=== PATIENT | female | born 1950 | race Hispanic/Latino ===

== ENCOUNTER 2018-03-29 05:29 | Emergency (ER) | payer MEDICARE ==
[2018-03-29 05:30] VITALS: BMI 20.7
== END 2018-03-29 05:45 | disposition left against medical advice (07) ==
LOC: ED 05:29
DX: Z02.89 Encounter for other administrative examinations (principal); T14.90XA Injury, unspecified, initial encounter

== ENCOUNTER 2018-04-04 05:49 | Emergency (ER) | payer MEDICARE ==
[2018-04-04 05:50] VITALS: BMI 20.7
[2018-04-04 06:15] VITALS: RESP 17
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
[2018-04-04 06:32] LABS: BASO # 0.01 K/mm3 (0.0-2.0); BASO % 0.1 % (0.0-3.0); EOS # 0.1 (0.0-0.7); GRAN # 5.54 (1.4-6.5); GRAN % 68.2 % (50.0-68.0); HEMOGLOBIN 13.8 g/dL (12.0-16.0); LYMPH # 2.1 (1.2-3.4); MEAN CELL VOLUME 89.2 fl (80.0-105.0); MEAN CORPUSCULAR HEMOGLOBIN 29.7 pg (25.0-35.0); MEAN CORPUSCULAR HGB CONC 33.3 g/dl (31.0-37.0); MEAN PLATELET VOLUME 9.6 fl (7.0-11.0); MONO # 0.4 (0.1-0.6); MONO % 4.7 % (1.0-6.0); RBC 4.65 10^6/uL (3.5-6.1); RED CELL DISTRIBUTION WIDTH 13.2 % (11.5-14.5); WHITE BLOOD COUNT 8.1 10^3/ul (4.5-11.0)
[2018-04-04 06:34] LABS: ALB/GLOB RATIO 1.5 (1.1-1.8); ALBUMIN 4.2 g/dL (3.0-4.8); ALT/SGPT 22 U/L (7-56); AST/SGOT 22 U/L (14-36); BLOOD UREA NITROGEN 15 mg/dL (7-21); GFR AFRICAN-AMERICAN > 60; GFR NON-AFRICAN AMERICAN > 60
[2018-04-04 06:46] LABS: TROPONIN I < 0.01 ng/mL
[2018-04-04 07:07] VITALS: BP 117/62; PULSE 84; TEMP 98; O2SAT 98
--- NOTE | 2018-04-04 09:19 | RAD ---
HISTORY: chest pain COMPARISON: No prior. FINDINGS: LUNGS: No active pulmonary disease. PLEURA: No significant pleural effusion identified, no pneumothorax apparent. CARDIOVASCULAR: No radiographic findings to suggest acute or significant cardiovascular disease. Incidental Finding(s): Postoperative changes related to sternotomy. Valve prosthesis identified OSSEOUS STRUCTURES: No significant abnormalities. VISUALIZED UPPER ABDOMEN: Normal. OTHER FINDINGS: None. IMPRESSION: No active disease.
--- NOTE | 2018-04-04 22:45 | CARD ---
APPROVED REPORT EKG Measurement Heart [id number] <Conclusion> Ectopic atrial rhythm with premature atrial complexes with aberrant conduction Incomplete right bundle branch block Prolonged QT Abnormal ECG
== END 2018-04-04 07:07 | disposition home or self-care (01) ==
LOC: ED 05:49
DX: R07.9 Chest pain, unspecified (principal); F41.9 Anxiety disorder, unspecified

== ENCOUNTER 2018-04-10 06:48 | Inpatient (IN) | payer MEDICARE, OTHER ==
[2018-04-10 06:49] VITALS: BMI 20.7
[2018-04-10 07:35] VITALS: O2SAT 98
[2018-04-10] MEDS ORDERED: Sodium Chloride 0.9% 1,000 ML IV STA (07:40)
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
--- NOTE | 2018-04-10 08:40 | RAD ---
HISTORY: psych COMPARISON: 04/04/2018 FINDINGS: LUNGS: No active pulmonary disease. PLEURA: No significant pleural effusion identified, no pneumothorax apparent. CARDIOVASCULAR: Normal heart size. Mitral valve replacement. Sternotomy wires. No congestive change. OSSEOUS STRUCTURES: No significant abnormalities. VISUALIZED UPPER ABDOMEN: Normal. OTHER FINDINGS: None. IMPRESSION: No active disease.
[2018-04-10 09:21] LABS: BASO # 0.01 K/mm3 (0.0-2.0); BASO % 0.1 % (0.0-3.0); EOS # 0.1 (0.0-0.7); EOS % 1.5 % (1.5-5.0); GRAN # 4.84 (1.4-6.5); GRAN % 64.2 % (50.0-68.0); HEMOGLOBIN 12.1 g/dL (12.0-16.0); LYMPH # 2.2 (1.2-3.4); LYMPH % 28.5 % (22.0-35.0); MEAN CELL VOLUME 88.5 fl (80.0-105.0); MEAN CORPUSCULAR HEMOGLOBIN 28.9 pg (25.0-35.0); MEAN CORPUSCULAR HGB CONC 32.7 g/dl (31.0-37.0); MEAN PLATELET VOLUME 9.3 fl (7.0-11.0); MONO # 0.4 (0.1-0.6); MONO % 5.7 % (1.0-6.0); RBC 4.18 10^6/uL (3.5-6.1); RED CELL DISTRIBUTION WIDTH 13.2 % (11.5-14.5); WHITE BLOOD COUNT 7.5 10^3/ul (4.5-11.0)
[2018-04-10 09:30] LABS: INR 0.98 (0.93-1.08); PARTIAL THROMBOPLASTIN TIME 29.3 Seconds (25.1-36.5); PROTHROMBIN TIME 11.3 SECONDS (9.4-12.5)
[2018-04-10 09:34] LABS: ACETAMINOPHEN < 10.0 ug/ml (10.0-20.0); SALICYLATE < 1 mg/dL (2.0-20.0)
--- NOTE | 2018-04-10 09:36 | CARD ---
APPROVED REPORT EKG Measurement Heart [id number] <Conclusion> RSR with APCs RVCD NSSTW changes Low voltage Prolonged QTc
[2018-04-10 09:46] LABS: TROPONIN I < 0.01 ng/mL
[2018-04-10 10:00] LABS: ALB/GLOB RATIO 1.3 (1.1-1.8); ALBUMIN 3.3 g/dL (3.0-4.8); ALT/SGPT 24 U/L (7-56); AST/SGOT 23 U/L (14-36); BLOOD UREA NITROGEN 18 mg/dL (7-21); CALCIUM 8.4 mg/dL (8.4-10.5); GFR AFRICAN-AMERICAN > 60; GFR NON-AFRICAN AMERICAN > 60
[2018-04-10 10:28] LABS: URINE BILIRUBIN NEGATIVE (NEGATIVE); URINE BLOOD NEGATIVE (NEGATIVE); URINE GLUCOSE (UA) NEGATIVE (NEGATIVE); URINE LEUKOCYTE ESTERASE NEGATIVE Leu/uL (NEGATIVE); URINE PROTEIN NEGATIVE mg/dL (<30 mg/dL); URINE UROBILINOGEN 0.2 E.U./dL (<1 E.U./dL)
[2018-04-10 10:32] LABS: URINE APPEARANCE CLEAR (CLEAR); URINE COLOR LIGHT YELLOW (YELLOW)
[2018-04-10 11:08] LABS: BARBITURATES, UR NEGATIVE (NEGATIVE); BENZODIAZEPINES, UR NEGATIVE (NEGATIVE); OPIATES, UR NEGATIVE (NEGATIVE); PHENCYCLIDINE, UR NEGATIVE (NEGATIVE)
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
--- NOTE | 2018-04-10 13:43 | PCM.BM ---
<Zeke Saunders - Last Filed: 04/10/18 13:40> Treatment Plan Problems - Problems identified on initial assessmt Altered sleep pattern Date Initiated: 04/10/18 Time Initiated: 13:41 Assessment reference: HP, NA Status: Active HOPLESSNESS/HELPLESSNESS Date Initiated: 04/10/18 Time Initiated: 13:43 Assessment reference: HP, NA Status: Active MEDICATION NONCOMPLIANCE Date Initiated: 04/10/18 Time Initiated: 13:43 Assessment reference: HP, NA Status: Active Treatment assets and liabiliti Patient Assests: cooperative, self-reliant, ADL independent, negotiates basic needs, cognitively intact Patient Liabilities: live alone, financial problems, poor support system, other - Milieu Protocol Maintain good personal hygiene: daily Encourage regular showers, daily Remind patient to perform daily oral care, daily Assist patient to perform ADL's Maintain personal safety: daily Educate patient to report safety concerns to staff, daily Monitor environment for contraband/sharps Medication safety: Monitor for expected outcome, potential side effects: daily, Assess barriers to learning: daily, Assess readiness for medication education: daily Discharge/Continuing Care - Education Needs Education Needs: Patient Medication, Patient Diagnosis/Disease Process, Patient Coping Skills, Patient Anger Management skills, Patient Community resources, Patient Activities of Daily Living, Patient Health Practices/Safety, Patient Personal Hygiene/Grooming, Patient Aftercare Safety Plan - Discharge Discharge Criteria: Free of Suicidal thoughts, Free of Homicidal thoughts, Free of paranoid thoughts, Normal sleep pattern, Ability to care for self Discharge to:: Home <Minerva Crawley - Last Filed: 04/10/18 14:10> - Diagnosis (1) Psychosis Status: Acute Interventions: 04/10/18 14:09 Psychoeducation/psychotherapy Psychopharmacology/adjustment of medications as needed/ monitoring possible side effects Evaluate pt on daily basis Compliance with medications and follow up appointments Long acting medication if pt is noncompliant with pill form Suicide and homicide risk assessment and prevention, coping strategies, safety plan Relapse prevention Reduction of symptoms Improve functional status Possible assertive community treatment Cognitive behavioral therapy Family involvement Possible social skill training as outpatient
[2018-04-10] MEDS ORDERED: Magnesium Hydroxide Susp 30 ml UD PO PRN (15:07)
[2018-04-10] MEDS ORDERED: Alum-Mag Hydrox-Simethicone Susp (30 mL) PO PRN (15:07)
[2018-04-10 15:57] VITALS: RESP 20
--- NOTE | 2018-04-11 06:08 | CON ---
DATE: 04/10/2018 REASON FOR THE CONSULTATION: Cardiac evaluation, history of open heart surgery. I went to see the patient. It was mentioned by the nursing staff the patient did not sleep for 3 days and medications were given to sleep, and she does not want to be awake. No cardiac complaint at this time, evaluation and followup. So we will consult the patient and see the patient in detail on Friday. Janes Wood MD
[2018-04-11] MEDS: Multivitamin With Minerals Tab PO SCH (09:03)
[2018-04-11 09:12] LABS: HDL CHOLESTEROL 63 mg/dL (29-60)
--- NOTE | 2018-04-11 09:12 | PCM.PYCHPN ---
Psychiatric Progress Note - Psychiatric Progress Note Patient seen today, length of contact: 25 min Problems Identified/Issues Discussed: I reviewed assessment and recent notes. Patient has been labile, restless and demanding on the unit. She interrupted me multiple times during round to ask if I planned to see her. Patient is demanding discharge indicating that she only came to the hospital so she could get some sleep. Explains that she didnt know she would end up in a psychiatric unit. We discuss her symptoms as she signs a 48 hour notice at 7:07 am. Patient is oriented to month, year and location. She is superficial, disengaged and minimizing. Her priority is to be discharged. 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 Patient reports she she slept well last night (5-6 hours) after she was medicated in the unit. Her thoughts are flighty and speech is rushed but not extremely pressured. Patient denies any new discomfort or pain. She doesn't appear to be in any physical distress. She denied hallucinations or paranoia. Staff notes indicate that she has been grandiose, illogical and paranoid. Her impulse control is tenuous and she requires further observation. Diagnostic Results: Psychotic disorder NOS r/o schizophrenia, late-onset r/o delirum r/o dementia r/o paranoid personality disorder Mental Status Examination - Cognitive Function Orientation: Person, Place - Mood Mood: Depressed ("I feel like I am in zoo, I am angry") - Affect Affect: Broad (expanded, irritable, angry) - Formal Thought Process Formal Thought Process: Delusions, Paranoia, Loosening of associations, Flight of ideas, Circumstantial, Perservation - Homicidal Ideation Homicidal Ideation: No Goal/Treatment Plan - Goal/Treatment Plan Progress Toward Problem(s) and Goals/Treatment Plan: * c/w current tx and plan * Patient placed 48 hour letter at 7:07 am on 04/11/18. Will request for screening from [facility] at this time. Patient is unknown to me and based on her presentation this morning and recent staff notes, she remains unpredictable. * No new weekend lab results thus far * Vitals reviewed and noted below: Selected Entries 04/11/18 07:24 Temperature 98.1 F Pulse Rate 63 Respiratory 20 Rate Blood Pressure 113/75
[2018-04-11 09:23] LABS: LDL CHOLESTEROL 87 mg/dL (0-129)
--- NOTE | 2018-04-11 13:08 | CP.PCM.CON ---
<DickLizandro - Last Filed: 04/11/18 14:53> History of Present Illness - History of Present Illness History of Present Illness: Medicine Consult Note Lizandro Jennings PGY-2 67 year old female with past medical history of diverticulitis, atrial fibrillation, open heart surgery (at 37 yo, 2 valve repairs) who was admitted to psychiatry unit. Medicine is being consulted for an episode nausea. Patient states her nausea has now resolved, states her last bowel movement was yesterday which was looser than usual. Patient denies any vomiting or abdominal pain. Patient denies chest pain, SOB, fever, chills, or any other complaints at this time. PMH: diverticulitis, atrial fibrillation, open heart surgery (at 37 yo, 2 valve repairs) PSH: cardiac valve repair Allergies: Sulfa Family Medical History: parents , father of throat cancer Medications: Per MAR Social: denies alcohol, tobacco, or illicit drug use Review of Systems - Constitutional Constitutional: absent: Anorexia, Chills, Fatigue, Fever, Headache, Lethargy, Night Sweats - EENT Eyes: absent: Blurred Vision, Change in Vision Ears: absent: Decreased Hearing, Disequilibrium, Dizziness - Cardiovascular Cardiovascular: absent: Chest Pain, Diaphoresis, Dyspnea, Syncope - Respiratory Respiratory: absent: Cough, Dyspnea, Wheezing - Gastrointestinal Gastrointestinal: Diarrhea. absent: Abdominal Pain, Coffee Ground Emesis, Constipation, Cramping, Dysphagia, Hematemesis, Hematochezia, Nausea, Vomiting - Genitourinary Genitourinary: absent: Difficulty Urinating, Dysuria, Flank Pain, Hematuria - Musculoskeletal Musculoskeletal: absent: Arthralgias, Back Pain - Integumentary Integumentary: absent: Rash, Sores - Neurological Neurological: absent: Abnormal Gait, Confusion, Disequilibrium, Dizziness, Numbness, Headaches, Tingling, Tremor, Vertigo, Weakness - Endocrine Endocrine: absent: Excessive Sweating, Fatigue, Flushing - Hematologic/Lymphatic Hematologic: absent: Easy Bleeding, Easy Bruising Past Patient History - Infectious Disease Hx of Infectious Diseases: None - Tetanus Immunizations Tetanus Immunization: Unknown - Past Social History Smoking Status: Never Smoked - CARDIAC Hx Cardiac Disorders: Yes Hx Hypertension: No - PULMONARY Hx Tuberculosis: No - NEUROLOGICAL HX Cerebrovascular Accident: No Hx Seizures: No - RENAL Hx Chronic Kidney Disease: No - ENDOCRINE/METABOLIC Hx Endocrine Disorders: No - HEMATOLOGICAL/ONCOLOGICAL Hx Cancer: No Hx Human Immunodeficiency Virus (HIV): No - GASTROINTESTINAL Hx Diverticulitis: Yes Hx Hemorrhoids: Yes - GENITOURINARY/GYNECOLOGICAL Hx Sexually Transmitted Disorders: No - PSYCHIATRIC Hx Depression: Yes Hx Substance Use: No - SURGICAL HISTORY Hx Surgeries: Yes Other/Comment: heart surgery - ANESTHESIA Hx Anesthesia: Yes Hx Anesthesia Reactions: No Meds Allergies/Adverse Reactions: Allergies Allergy/AdvReac Type Severity Reaction Status Date / Time sulfur dioxide Allergy FEVER Verified 04/10/18 12:28 - Medications Medications: Current Medications Acetaminophen (Tylenol 325mg Tab) 650 mg PO Q6H PRN PRN Reason: Pain, moderate (4-7) Al Hydrox/Mg Hydrox/Simethicone (Maalox Plus 30 Ml) 30 ml PO DAILY PRN PRN Reason: Indigestion / Heartburn Lorazepam (Ativan) 2 mg IM Q6 PRN; Protocol PRN Reason: agitaiton/aggression Lorazepam (Ativan) 2 mg PO Q6H PRN; Protocol PRN Reason: anxiety/agitation Last Admin: 04/11/18 09:55 Dose: 2 mg Magnesium Hydroxide (Milk Of Magnesia) 30 ml PO DAILY PRN PRN Reason: Constipation Multivitamins/Minerals (Therapeutic-M Tab) 1 tab PO DAILY EMERALD Last Admin: 04/11/18 09:03 Dose: 1 tab Quetiapine Fumarate (Seroquel) 25 mg PO AMHS EMERALD PRN Reason: Protocol Last Admin: 04/11/18 09:04 Dose: 25 mg Zaleplon (Sonata) 5 mg PO HS PRN PRN Reason: Insomnia Ziprasidone (Geodon Cap) 20 mg PO Q6H PRN; Protocol PRN Reason: psychosis/agitation Last Admin: 04/11/18 09:56 Dose: 20 mg Ziprasidone (Geodon Inj) 20 mg IM Q6H PRN; Protocol PRN Reason: severe agitaiton/psychosis Physical Exam - Constitutional Appears: Well, Non-toxic, No Acute Distress - Head Exam Head Exam: ATRAUMATIC, NORMAL INSPECTION, NORMOCEPHALIC - Eye Exam Eye Exam: EOMI, Normal appearance - ENT Exam ENT Exam: Mucous Membranes Moist - Neck Exam Neck exam: Positive for: Full Rom - Respiratory Exam Respiratory Exam: Clear to Auscultation Bilateral, NORMAL BREATHING PATTERN - Cardiovascular Exam Cardiovascular Exam: REGULAR RHYTHM, +S1, +S2 - GI/Abdominal Exam GI & Abdominal Exam: Soft, Tenderness. absent: Diminished Bowel Sounds, Distended, Guarding, Hyperactive Bowel Sounds, Rebound, Rigid Additional comments: mild LLQ which patient states is chronic - Extremities Exam Extremities exam: Positive for: pedal pulses present. Negative for: calf tenderness - Neurological Exam Neurological exam: Alert, CN II-XII Intact, Oriented x3 - Psychiatric Exam Psychiatric exam: Anxious - Skin Skin Exam: Warm Results - Vital Signs Recent Vital Signs: Last Vital Signs Temp 98.1 F 04/11/18 07:24 Pulse 63 04/11/18 07:24 Resp 20 04/11/18 07:24 BP 113/75 04/11/18 07:24 Pulse Ox 98 04/10/18 10:30 - Labs Result Diagrams: 04/10/18 08:52 04/10/18 08:52 Labs: Laboratory Results - last 24 hr 04/11/18 08:40 Triglycerides 63 Cholesterol 181 LDL Cholesterol Direct 87 HDL Cholesterol 63 H Assessment & Plan - Assessment and Plan (Free Text) Assessment: 67 year old female with past medical history of diverticulitis, atrial fibrillation, open heart surgery (at 37 yo, 2 valve repairs) who was admitted to psychiatry unit. Medicine is being consulted for an episode nausea and medical clearance. Plan: 1. History of Cardiac Surgery and afib -currently denies any cardiac complaints -cardio consulted, [place], follow recs -EKG was Sinus rhythm with QTC prolongation, premature atrial complexes and right ventricular conduction display 2. Nausea -patient denies any nausea currently -will continue to monitor 3. Diarrhea -last episode of diarrhea was more than 24 hours ago -will monitor for another BM -CBC, CMP to follow electrolytes 4. History of Psychiatric Disorders -management as per psychiatry <Vy Espinoza R - Last Filed: 04/11/18 17:57> Meds - Medications Medications: Current Medications Acetaminophen (Tylenol 325mg Tab) 650 mg PO Q6H PRN PRN Reason: Pain, moderate (4-7) Al Hydrox/Mg Hydrox/Simethicone (Maalox Plus 30 Ml) 30 ml PO DAILY PRN PRN Reason: Indigestion / Heartburn Lorazepam (Ativan) 2 mg IM Q6 PRN; Protocol PRN Reason: agitaiton/aggression Lorazepam (Ativan) 2 mg PO Q6H PRN; Protocol PRN Reason: anxiety/agitation Last Admin: 04/11/18 09:55 Dose: 2 mg Magnesium Hydroxide (Milk Of Magnesia) 30 ml PO DAILY PRN PRN Reason: Constipation Multivitamins/Minerals (Therapeutic-M Tab) 1 tab PO DAILY EMERALD Last Admin: 04/11/18 09:03 Dose: 1 tab Quetiapine Fumarate (Seroquel) 25 mg PO AMHS EMERALD PRN Reason: Protocol Last Admin: 04/11/18 09:04 Dose: 25 mg Zaleplon (Sonata) 5 mg PO HS PRN PRN Reason: Insomnia Ziprasidone (Geodon Cap) 20 mg PO Q6H PRN; Protocol PRN Reason: psychosis/agitation Last Admin: 04/11/18 09:56 Dose: 20 mg Ziprasidone (Geodon Inj) 20 mg IM Q6H PRN; Protocol PRN Reason: severe agitaiton/psychosis Results - Vital Signs Recent Vital Signs: Last Vital Signs Temp 98.1 F 04/11/18 07:24 Pulse 75 04/11/18 16:00 Resp 20 04/11/18 07:24 BP 138/85 04/11/18 16:00 Pulse Ox 98 04/10/18 10:30 - Labs Result Diagrams: 04/10/18 08:52 04/10/18 08:52 Labs: Laboratory Results - last 24 hr 04/11/18 08:40 Triglycerides 63 Cholesterol 181 LDL Cholesterol Direct 87 HDL Cholesterol 63 H Attending/Attestation - Attestation I have personally seen and examined this patient.: Yes I have fully participated in the care of the patient.: Yes I have reviewed all pertinent clinical information: Yes Notes (Text): Patient seen and examined by me at 1:00PM with resident at bedside. Case including physical assessment and plan discussed with resident. Agree with above with following additions/changes. Patient is a 67-year-old female with past medical history significant for diverticulitis, atrial fibrillation, open-heart surgery for valve repair, and psychiatric disorder that presented with wanting to sleep. We are consulted for episode of nausea with a history of diverticulitis. Patient states that she felt nauseous yesterday secondary to the heat. She denies any current nausea. There was no associated vomiting. Patient denies any abdominal pain. She states that she tends to feel nauseous whenever it is very hot. She states that she also had 1-2 episodes of slightly watery diarrhea yesterday. That has since resolved. He has not had a bowel movement since then. Patient is denying any chest pain or shortness of breath. Patient states that she does not want to take any more pills as they are making her very sleepy. No headaches or dizziness. No fevers or chills. No dysuria. No neck pain or back pain. 14 point review of systems reviewed by me. Please see HPI. All other systems are negative. Home medications reviewed with patient by me. Physical exam: Gen: Patient is awake and alert and lying in bed in no acute distress HEENT: Normocephalic atraumatic, extraocular muscles intact, pupils equal reactive, oropharynx is pink and moist, no pharyngeal erythema or exudate appreciated, neck is supple. Hearing grossly intact. Ears and nose externally unremarkable. Cardiovascular: Normal rhythm, normal S1-S2, no murmurs rubs or gallops appreciated Pulmonary: Normal respiratory effort. No rhonchi, rales, or wheezing appreciated Gastrointestinal: Soft, obese abdomen, nontender, nondistended, positive bowel sounds all 4 quadrants, no guarding Musculoskeletal: Moves all extremities, no calf tenderness, no CVA tenderness Central nervous system: AAO 3 Dermatologic: Skin warm and dry Assessment and plan: Patient is a 67-year-old female for whom your consult at for for nausea. 1. Nausea. Resolved. We'll continue to monitor for now. There is no associated vomiting or abdominal pain. 2. Diarrhea. Patient does have a history of diverticulitis. Diarrhea seems to have resolved. Patient is not having any abdominal pain. We'll monitor for now. 3. History of valve repair(per patient) and atrial fibrillation. Cardiology is following. Care as per cardiac team 4. Psychiatric disorder. Care as per primary team Case was discussed in detail with the patient and medical lab technologist regarding current diagnosis and treatment plan. Thank you for allowing us to participate in the care of your patient. We will follow with you.
[2018-04-12] MEDS ORDERED: Pantoprazole 40 mg EC Tab PO SCH (06:00)
[2018-04-12] MEDS: Multivitamin With Minerals Tab PO SCH (08:43)
--- NOTE | 2018-04-12 09:00 | PCM.PYCHPN ---
Psychiatric Progress Note - Psychiatric Progress Note Patient seen today, length of contact: 25 min Problems Identified/Issues Discussed: I reviewed recent notes. Patient continues to be labile, grandiose and irritable in the unit. She retracted her 48 hour letter but for some reason she believes that she will be discharged tomorrow (this was not indicated by any of the staff members or this provider). Grooming is fair and speech is rushed. Thought process is scattered and patient goes on multiple tangents as she complains about her housing, neighbors, politicians and [place] in general. She repeatedly reports that she is planning to write an article that will "destroy [employer]". Patient is difficult to redirect or reassure (but not impossible). Patient didn't sleep well last night. Complains that the unit was too noisy for her. She denies any new discomfort or pain. Patient continues to deny hallucinations or paranoia. Staff notes indicate that she has been grandiose, illogical and paranoid. Her impulse control is tenuous and she requires further observation. Diagnostic Results: Psychotic disorder NOS r/o schizophrenia, late-onset r/o delirum r/o dementia r/o paranoid personality disorder Mental Status Examination - Cognitive Function Orientation: Person, Place Attention: Poor Concentration: Poor Association: Loose - Mood Mood: Depressed ("I feel like I am in zoo, I am angry") - Affect Affect: Broad (expanded, irritable, angry) - Formal Thought Process Formal Thought Process: Delusions, Paranoia, Loosening of associations, Flight of ideas, Circumstantial, Perservation - Suicidal Ideation Suicidal Ideation: No - Homicidal Ideation Homicidal Ideation: No Goal/Treatment Plan - Goal/Treatment Plan Progress Toward Problem(s) and Goals/Treatment Plan: * c/w current tx and plan * Appreciate f/u by Dr. Jennings/Dr. Espinoza on 04/11/18 * Patient placed 48 hour letter at 7:07 am on 04/11/18 and then retracted it after discussion with [facility] screener. * New weekend lab results noted below: 04/11/18 04/11/18 08:40 08:40 Triglycerides 63 Cholesterol 181 LDL Cholesterol Direct 87 HDL Cholesterol 63 H RPR Nonreactive * Vitals reviewed and noted below: 04/12/18 06:54 Temperature 98.1 F Pulse Rate 70 Respiratory 20 Rate Blood Pressure 128/81
--- NOTE | 2018-04-12 12:58 | CP.PCM.PN ---
<Ambar Gonzalez - Last Filed: 04/12/18 16:34> Subjective - Date & Time of Evaluation Date of Evaluation: 04/12/18 Time of Evaluation: 08:30 - Subjective Subjective: Ambar Gonzalez DO, PGY-2: Progress Note for Dr. Vy Espinoza Patient seen and examined at bedside. Patient reports no nausea, vomiting, diarrhea, abdominal pain, chest discomfort, or palpitations. Patient reports that she slept poorly overnight, but is tolerating a normal diet without nausea or vomiting. Chart review indicates no adverse events overnight. Objective - Vital Signs/Intake and Output Vital Signs (last 24 hours): Temp Pulse Resp BP Pulse Ox 98.1 F 70 20 128/81 98 04/12/18 06:54 04/12/18 06:54 04/12/18 06:54 04/12/18 06:54 04/10/18 10:30 - Medications Medications: Current Medications Acetaminophen (Tylenol 325mg Tab) 650 mg PO Q6H PRN PRN Reason: Pain, moderate (4-7) Al Hydrox/Mg Hydrox/Simethicone (Maalox Plus 30 Ml) 30 ml PO DAILY PRN PRN Reason: Indigestion / Heartburn Lorazepam (Ativan) 2 mg IM Q6 PRN; Protocol PRN Reason: agitaiton/aggression Lorazepam (Ativan) 2 mg PO Q6H PRN; Protocol PRN Reason: anxiety/agitation Last Admin: 04/11/18 09:55 Dose: 2 mg Magnesium Hydroxide (Milk Of Magnesia) 30 ml PO DAILY PRN PRN Reason: Constipation Multivitamins/Minerals (Therapeutic-M Tab) 1 tab PO DAILY EMERALD Last Admin: 04/12/18 08:43 Dose: 1 tab Quetiapine Fumarate (Seroquel) 25 mg PO AMHS EMERALD PRN Reason: Protocol Last Admin: 04/11/18 23:53 Dose: 25 mg Zaleplon (Sonata) 5 mg PO HS PRN PRN Reason: Insomnia Ziprasidone (Geodon Cap) 20 mg PO Q6H PRN; Protocol PRN Reason: psychosis/agitation Last Admin: 04/11/18 09:56 Dose: 20 mg Ziprasidone (Geodon Inj) 20 mg IM Q6H PRN; Protocol PRN Reason: severe agitaiton/psychosis - Labs Labs: PT 11.3 SECONDS (9.4-12.5) 04/10/18 08:52 INR 0.98 (0.93-1.08) 04/10/18 08:52 APTT 29.3 Seconds (25.1-36.5) 04/10/18 08:52 - Constitutional Appears: Well, Non-toxic - Head Exam Head Exam: ATRAUMATIC, NORMOCEPHALIC - Eye Exam Eye Exam: EOMI, Normal appearance - ENT Exam ENT Exam: Mucous Membranes Moist - Neck Exam Neck Exam: Normal Inspection - Respiratory Exam Respiratory Exam: Clear to Ausculation Bilateral, NORMAL BREATHING PATTERN. absent: Accessory Muscle Use - Cardiovascular Exam Cardiovascular Exam: RRR, +S1, +S2 - GI/Abdominal Exam GI & Abdominal Exam: Soft, Normal Bowel Sounds. absent: Guarding - Rectal Exam Rectal Exam: NORMAL INSPECTION - Extremities Exam Extremities Exam: Normal Inspection. absent: Calf Tenderness, Normal Capillary Refill - Back Exam Back Exam: NORMAL INSPECTION. absent: CVA tenderness (L), CVA tenderness (R) - Neurological Exam Neurological Exam: Alert, Awake, Oriented x3 - Psychiatric Exam Psychiatric exam: Normal Affect, Normal Mood - Skin Skin Exam: Dry, Intact, Normal Color, Warm Assessment and Plan - Assessment and Plan (Free Text) Assessment: 67 year old female with past medical history of diverticulitis, atrial fibrillation, open heart surgery (at 37 yo, 2 valve repairs) who was admitted to psychiatry unit. Medicine is being consulted for an episode nausea and medical clearance. Plan: 1. History of Cardiac Surgery and afib -currently denies any cardiac complaints -cardio consulted, [place], who plans on seeing the patient tomorrow -EKG was Sinus rhythm with QTC prolongation, premature atrial complexes and right ventricular conduction display - Lipid panel shows Total cholesterol 63, Triglycerides 181, LDL 87, and HDL of 63 2. Nausea, resolved -patient denies any nausea currently -will continue to monitor 3. Diarrhea, reoslved -last episode of diarrhea was more than 36 hours ago -will monitor for another BM 4. History of Psychiatric Disorders -management as per psychiatry As always, thank you for allowing us to participate in the care of this patient Patient is medically cleared. Please re-consult as needed Case reviewed and discussed with attending physician, Dr. Vy Espinoza <Vy Espinoza R - Last Filed: 04/12/18 17:13> Objective - Vital Signs/Intake and Output Vital Signs (last 24 hours): Temp Pulse Resp BP Pulse Ox 98.1 F 75 20 113/76 98 04/12/18 06:54 04/12/18 16:00 04/12/18 06:54 04/12/18 16:00 04/10/18 10:30 - Medications Medications: Current Medications Acetaminophen (Tylenol 325mg Tab) 650 mg PO Q6H PRN PRN Reason: Pain, moderate (4-7) Al Hydrox/Mg Hydrox/Simethicone (Maalox Plus 30 Ml) 30 ml PO DAILY PRN PRN Reason: Indigestion / Heartburn Lorazepam (Ativan) 2 mg IM Q6 PRN; Protocol PRN Reason: agitaiton/aggression Lorazepam (Ativan) 2 mg PO Q6H PRN; Protocol PRN Reason: anxiety/agitation Last Admin: 04/11/18 09:55 Dose: 2 mg Magnesium Hydroxide (Milk Of Magnesia) 30 ml PO DAILY PRN PRN Reason: Constipation Multivitamins/Minerals (Therapeutic-M Tab) 1 tab PO DAILY EMERALD Last Admin: 04/12/18 08:43 Dose: 1 tab Quetiapine Fumarate (Seroquel) 25 mg PO AMHS EMERALD PRN Reason: Protocol Last Admin: 04/12/18 10:30 Dose: 25 mg Zaleplon (Sonata) 5 mg PO HS PRN PRN Reason: Insomnia Ziprasidone (Geodon Cap) 20 mg PO Q6H PRN; Protocol PRN Reason: psychosis/agitation Last Admin: 04/11/18 09:56 Dose: 20 mg Ziprasidone (Geodon Inj) 20 mg IM Q6H PRN; Protocol PRN Reason: severe agitaiton/psychosis - Labs Labs: PT 11.3 SECONDS (9.4-12.5) 04/10/18 08:52 INR 0.98 (0.93-1.08) 04/10/18 08:52 APTT 29.3 Seconds (25.1-36.5) 04/10/18 08:52 Attending/Attestation - Attestation I have personally seen and examined this patient.: Yes I have fully participated in the care of the patient.: Yes I have reviewed all pertinent clinical information, including history, physical exam and plan: Yes Notes (Text): Patient seen and examined by me at 11:25AM with resident at bedside. Case including physical assessment and plan discussed with resident. Agree with above with following additions/changes. Patient is a 67-year-old female with past medical history significant for diverticulitis, atrial fibrillation, open-heart surgery for valve repair, and psychiatric disorder that presented with wanting to sleep. We are consulted for episode of nausea with a history of diverticulitis. Patient states nausea has resolved. No vomiting. No abdominal pain. Patient states she is no longer having diarrhea. She states she feels tired because she was unable to sleep overnight. Patient is denying any chest pain or shortness of breath. No headaches or dizziness. No fevers or chills. No dysuria. No neck pain or back pain. Physical exam: Gen: Patient is awake and alert and lying in bed in no acute distress HEENT: Normocephalic atraumatic, extraocular muscles intact, pupils equal reactive, oropharynx is pink and moist, no pharyngeal erythema or exudate appreciated, neck is supple. Cardiovascular: Normal rhythm, normal S1-S2, no murmurs rubs or gallops appreciated Pulmonary: Normal respiratory effort. No rhonchi, rales, or wheezing appreciated Gastrointestinal: Soft, obese abdomen, nontender, nondistended, positive bowel sounds all 4 quadrants, no guarding Musculoskeletal: Moves all extremities, no calf tenderness, no CVA tenderness Central nervous system: AAO 3 Dermatologic: Skin warm and dry Assessment and plan: Patient is a 67-year-old female with nausea and diarrhea. 1. Nausea. Resolved. There is no associated vomiting or abdominal pain. 2. Diarrhea. Patient does have a history of diverticulitis. Diarrhea resolved. 3. History of valve repair(per patient) and atrial fibrillation. Cardiology is following. Care as per cardiac team 4. Psychiatric disorder. Care as per primary team Case was discussed in detail with the patient regarding current diagnosis and treatment plan. Nausea and diarrhea resolved. We will sign off. Please re-consult if needed. Thank you for allowing us to participate in the care of your patient.
[2018-04-13] MEDS: Multivitamin With Minerals Tab PO SCH (09:24)
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
[2018-04-14] MEDS: Multivitamin With Minerals Tab PO SCH (10:38)
--- NOTE | 2018-04-14 12:35 | PN ---
DATE: 04/14/2018 REASON FOR CONSULTATION AND FOLLOWUP: Cardiac evaluation, history of open heart surgery. SUBJECTIVE: The patient denies any chest pain, shortness of breath or any palpitations, but very upset, did not sleep last night. OBJECTIVE: GENERAL: Not in apparent distress, but appears very upset and saying bad words to staff that she could not sleep last night. VITAL SIGNS: Temperature afebrile, heart rate 69, blood pressure 110/60. HEENT: PERRLA. Extraocular muscles are intact. NECK: Supple. No carotid bruits. No thyromegaly. CHEST: Clear to auscultation. HEART: S1 and S2 regular. ABDOMEN: Soft. EXTREMITIES: Clubbing and cyanosis negative. LABORATORY DATA: Blood workup as follows: WBC 7.9, hemoglobin 12.1, hematocrit 37, platelet count 212. Chemistries shows sodium 141, potassium 3.9, chloride 109, carbon dioxide 22, anion gap 14, BUN 18, creatinine 0.7. Total cholesterol 181, LDL 87, HDL 63, triglycerides 63. IMPRESSION: A 67-year-old female with past medical history significant for patent foramen ovale, status post repair at the age of 32, history of mitral valve regurgitation and tricuspid regurgitation, status post mitral valve repair and tricuspid repair at the age of 32 [address] [facility]. History of paroxysmal atrial fibrillation, was on Coumadin, but stopped two months after the surgery. Very poor compliant with the medication and now in psychiatric floor for anxiety disorder. RECOMMENDATIONS: Echo to assess LV function. EKG shows normal sinus with APCs. We will get repeat EKG and echo to assess LV function. Further recommendations after the echo. We will follow with you. Patient states she is very upset because she could not sleep, but she states that she will go for echo today. We will get TSH level and hemoglobin A1c as well on next blood draw. Thank you Dr. Crawley for providing us the opportunity in taking care of Alissa He. Janes Wood MD
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
--- NOTE | 2018-04-14 16:36 | CARD ---
APPROVED REPORT Date of service: 04/14/2018 EKG Measurement Heart [id number] <Conclusion> Atrial flutter with variable AV block with premature ventricular or aberrantly conducted complexes Incomplete right bundle branch block Possible Anterior infarct, age undetermined Abnormal ECG
[2018-04-15 07:26] LABS: BASO # 0.01 K/mm3 (0.0-2.0); BASO % 0.2 % (0.0-3.0); EOS # 0.1 (0.0-0.7); EOS % 1.9 % (1.5-5.0); GRAN # 3.14 (1.4-6.5); GRAN % 52.9 % (50.0-68.0); LYMPH # 2.4 (1.2-3.4); LYMPH % 39.9 % (22.0-35.0); MEAN CELL VOLUME 87.9 fl (80.0-105.0); MEAN CORPUSCULAR HEMOGLOBIN 29.6 pg (25.0-35.0); MEAN CORPUSCULAR HGB CONC 33.6 g/dl (31.0-37.0); MEAN PLATELET VOLUME 9.6 fl (7.0-11.0); MONO # 0.3 (0.1-0.6); MONO % 5.1 % (1.0-6.0); RBC 5.14 10^6/uL (3.5-6.1); WHITE BLOOD COUNT 5.9 10^3/ul (4.5-11.0)
[2018-04-15 07:29] LABS: HEMOGLOBIN 15.2 g/dL (12.0-16.0)
[2018-04-15 07:53] LABS: ALB/GLOB RATIO 1.4 (1.1-1.8); ALBUMIN 3.8 g/dL (3.0-4.8); ALT/SGPT 21 U/L (7-56); AST/SGOT 18 U/L (14-36); BLOOD UREA NITROGEN 17 mg/dL (7-21); CALCIUM 9.1 mg/dL (8.4-10.5); GFR AFRICAN-AMERICAN > 60; GFR NON-AFRICAN AMERICAN > 60; HDL CHOLESTEROL 58 mg/dL (29-60)
[2018-04-15 07:54] LABS: LDL CHOLESTEROL 91 mg/dL (0-129)
[2018-04-15] MEDS: Multivitamin With Minerals Tab PO SCH (08:26)
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
--- NOTE | 2018-04-15 13:38 | PN ---
DATE: 04/15/2018 LOCATION: Patient is in room 518, bed 1. REASON FOR CONSULTATION AND FOLLOWUP: Cardiac evaluation; history of patent foramen ovale, for which patient had surgery. Patient also has repair of mitral valve and tricuspid valve for their regurgitation. SUBJECTIVE: Patient denies any chest pain, shortness of breath, or palpitation. PHYSICAL EXAMINATION: VITAL SIGNS: Blood pressure 103/76, respirations 20, pulse 93, and temperature 98.2. HEENT: Head is normocephalic. Eyes: Pupils normal. Conjunctivae normal. Nose and throat normal. NECK: JVP low. Carotids equal. THORAX: AP diameter normal. LUNGS: Clear. CARDIOVASCULAR: S1 and S2. ABDOMEN: Soft. No tenderness. No organomegaly. Bowel sounds normal. EXTREMITIES: No clubbing. No cyanosis. LABORATORY DATA: WBC 5.9, hemoglobin 15.2, hematocrit 45.2, and platelets 246. Sodium 141, potassium 4.1. BUN 17, creatinine 0.7. Calcium 9.1, phosphorus 3.7, magnesium 2.4. AST and ALT normal. Total protein 6.6, albumin 3.8. DIAGNOSES: History of patent foramen ovale, status post surgery for closure of the patent foramen ovale and repair of mitral valve and repair of tricuspid valve for mitral and tricuspid regurgitation at age 32 at [facility]. Patient is very poorly compliant with the medication and now patient is admitted to psychiatric floor because of anxiety. PLAN: This patient had echocardiogram done yesterday. Report is pending. We will continue present therapy and review the echo and if there will be any need for any further management from cardiac point of view, I will review the echo and will let you know. In the meantime, patient's cardiac status is stable and if patient wants to go home, patient can go home and follow the echo as outpatient. We will follow with you. Janes Turner MD
--- NOTE | 2018-04-15 18:00 | CARD ---
APPROVED REPORT Date of service: 04/14/2018 EXAM: Two-dimensional and M-mode echocardiogram with Doppler and color Doppler. INDICATION S/P ASD, MVR, TR, MR, RVSP 2D DIMENSIONS Left Atrium (2D)4.6 (1.6-4.0cm)IVSd0.9 (0.7-1.1cm) LVDd4.1 (3.9-5.9cm)PWd1.0 (0.7-1.1cm) LVDs2.9 (2.5-4.0cm)FS (%) 28.9 % LVEF (%)56.1 (>50%) M-Mode DIMENSIONS Aortic Root3.20 (2.2-3.7cm)Aortic Cusp Exc.1.80 (1.5-2.0cm) Aortic Valve AoV Peak Dcwkvamo220.0cm/Sinan Peak GR.6mmHg Mitral Valve MV [id number]/A ratio0.0MVA (PHT)3.44cm2 TDI E/Lateral E'0.0E/Medial E'0.0 Pulmonary Valve PV Peak Ctvvsiam04.1cm/sPV Peak Grad.2mmHg Tricuspid Valve TR Peak Sfaknems367ap/sRAP [id number] Peak Gr.21mmHg [id number] LEFT VENTRICLE The left ventricle is normal size. There is normal left ventricular wall thickness. The left ventricular function is normal.EF-60-65% There is normal LV segmental wall motion. The left ventricular diastolic function is normal. No left ventricle thrombus noted on this study. There is no ventricular septal defect visualized. There is no left ventricular aneurysm. There is no mass noted in the left ventricle. RIGHT VENTRICLE The right ventricle is mildly dilated. There is normal right ventricular wall thickness. The right ventricular systolic function is normal. ATRIA The left atrium is mildly dilated. The right atrium is mildly dilated. The interatrial septum is intact with no evidence for an atrial septal defect. Inter atrial septum is thickened c/w previous Hx of patch repair. AORTIC VALVE The aortic valve is thickened but opens well. No aortic regurgitation is present. There is no aortic valvular stenosis. There is no aortic valvular vegetation. MITRAL VALVE s/p MV repair with EC Ring, normal functioning. TRICUSPID VALVE S/p Repair, Mild TR RVSP-30 mmof Hg PULMONIC VALVE The pulmonary valve is normal in structure. There is no pulmonic valvular regurgitation. There is no pulmonic valvular stenosis. GREAT VESSELS The aortic root is normal in size. The ascending aorta is normal in size. The pulmonary artery is normal. The IVC is normal in size and collapses >50% with inspiration. PERICARDIAL EFFUSION There is no pleural effusion. There is no pericardial effusion. <Conclusion> The left ventricle is normal size. There is normal left ventricular wall thickness. The left ventricular function is normal.EF-60-65% The right ventricle is mildly dilated. The right ventricular systolic function is normal. The interatrial septum is intact with no evidence for an atrial septal defect. Inter atrial septum is thickened c/w previous Hx of patch repair. s/p MV repair with EC Ring, normal functioning. S/p Repair, Mild TR RVSP-30 mmof Hg The IVC is normal in size and collapses >50% with inspiration. There is no pericardial effusion.
[2018-04-16 07:04] VITALS: BP 117/72; PULSE 75; TEMP 98
[2018-04-16] MEDS: Multivitamin With Minerals Tab PO SCH (08:00)
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
--- NOTE | 2018-04-16 19:35 | PN ---
DATE: 04/16/2018 REASON FOR CONSULTATION AND FOLLOWUP: Cardiac evaluation, history of patent foramen ovale, mitral and tricuspid regurgitation, status post repair of mitral and tricuspid valve as well as repair or PFO, admitted with anxiety disorder to the Psych floor. SUBJECTIVE: The patient denies any chest pain, shortness of breath, or any palpitation. OBJECTIVE: GENERAL: Not in any apparent distress, feels a lot better. VITAL SIGNS: Temperature afebrile, heart rate 79, blood pressure 117/72. HEENT: PERRLA. Extraocular muscles intact. NECK: Supple. No carotid bruits, no thyromegaly. CHEST: Clear to auscultation. HEART: S1 and S2, regular. ABDOMEN: Soft. EXTREMITIES: Clubbing and cyanosis negative. LABORATORY DATA: Blood workup as follows: WBC is 5.3, hemoglobin 15.2, hematocrit 45.2, and platelet count 246. Chemistry shows sodium 141, potassium 4.1, chloride 109, carbon dioxide 27, anion gap of 13. BUN 17, creatinine 0.7. TSH 5.3. Total cholesterol is 182, LDL 91, HDL 58, triglycerides 67. The patient had echocardiography done yesterday that revealed thick interatrial septum consistent with patch repair, ejection fraction 60% to 65%, right ventricle mildly dilated, normal right ventricular function, interatrial septum is intact with no evidence of atrioseptal defect, although it is thick and consistent with history of patch repair, status post mitral valve repair with normal functioning, status post tricuspid repair, mild TR, RV systolic pressure 30 mmHg. RECOMMENDATIONS: Continue antianxiety medications and treatment in the Psych floor. Discussed with the patient upon discharge for risks stratification and suggest the patient to have a stress test as outpatient, but no ischemic symptoms, no agnina or any arrhythmia at this time. We can do a stress test as outpatient. Thank you Dr. Crawley for providing us the opportunity in taking care of the patient, Alissa He. Janes Wood MD cc: Minerva Crawley MD
== END 2018-04-16 13:59 | disposition left against medical advice (07) | DRG 885 ==
LOC: ED 06:48 → ERH 09:40 → PSYC 11:08
PROVIDERS: ADMIT Psychiatry & Neurology Psychiatry; ATTEND Psychiatry & Neurology Psychiatry
DX: F29 Unspecified psychosis not due to a substance or known physiological condition (principal); E86.0 Dehydration; I48.0 Paroxysmal atrial fibrillation; F41.9 Anxiety disorder, unspecified; F32.9 Major depressive disorder, single episode, unspecified; I08.1 Rheumatic disorders of both mitral and tricuspid valves; M54.31 Sciatica, right side; R19.7 Diarrhea, unspecified; R11.0 Nausea; G47.00 Insomnia, unspecified; Z87.19 Personal history of other diseases of the digestive system; Z87.74 Personal history of (corrected) congenital malformations of heart and circulatory system; Z91.14 Patient's other noncompliance with medication regimen; Z79.01 Long term (current) use of anticoagulants; Z82.3 Family history of stroke; Z80.1 Family history of malignant neoplasm of trachea, bronchus and lung

== ENCOUNTER 2018-10-06 19:51 | Emergency (ER) | payer MEDICARE, MEDICAID ==
[2018-10-06 19:51] VITALS: BMI 20.7
[2018-10-06 20:15] VITALS: BP 114/66; PULSE 89; RESP 19; TEMP 98.3; O2SAT 98
--- NOTE | 2018-10-06 20:21 | ED PDOC ---
Arrival/HPI - General Chief Complaint: Abnormal Skin Integrity Time Seen by Provider: 10/06/18 19:53 Historian: Patient - History of Present Illness Narrative History of Present Illness (Text): 10/06/18 20:20 Alissa He is a 67 year old female, whose past medical history includes diverticulitis, atrial fibrillation, and open heart surgery, who presents to the Emergency department complaining of a rash. Patient states she has been experiencing a painful rash to the right chest and right breast for the past few days. Patient denies any fever, weakness/tingling to the extremities, changes in diet/lotions/detergents, or any other complaints. Symptom Onset: Gradual Symptom Course: Unchanged Activities at Onset: Light Context: Home Past Medical History - Provider Review Nursing Documentation Reviewed: Yes - Past History Past History: No Previous - Infectious Disease Hx of Infectious Diseases: None - Tetanus Immunization Tetanus Immunization: Unknown - Reproductive Menopause: Yes - Past Medical History Past Medical History: Non-Contributing - Cardiac Hx Cardiac Disorders: Yes Hx Hypertension: No - Pulmonary Hx Tuberculosis: No - Neurological HX Cerebrovascular Accident: No Hx Seizures: No - Renal Hx Renal Disorder: No - Endocrine/Metabolic Hx Endocrine Disorders: No - Hematological/Oncological Hx Cancer: No - Gastrointestinal Hx Diverticulitis: Yes Hx Hemorrhoids: Yes - Genitourinary/Gynecological Hx Sexually Transmitted Diseases: No - Psychiatric Hx Depression: Yes Hx Substance Use: No - Surgical History Other/Comment: heart surgery - Anesthesia Hx Anesthesia: Yes Hx Anesthesia Reactions: No Family/Social History - Physician Review Nursing Documentation Reviewed: Yes Family/Social History: Unknown Family HX Smoking Status: Never Smoked Hx Alcohol Use: No Hx Substance Use: No Allergies/Home Meds Allergies/Adverse Reactions: Allergies sulfur dioxide Allergy (Verified 10/06/18 20:12) FEVER Review of Systems - Physician Review All systems were reviewed & negative as marked: Yes - Review of Systems Constitutional: Normal. absent: Fevers Eyes: Normal ENT: Normal Respiratory: Normal. absent: SOB, Cough Cardiovascular: Normal. absent: Chest Pain Gastrointestinal: Normal. absent: Abdominal Pain, Diarrhea, Nausea, Vomiting Genitourinary Female: Normal. absent: Dysuria, Frequency, Hematuria, Urine Output Changes Musculoskeletal: Normal. absent: Back Pain, Neck Pain Skin: Rash Neurological: Normal. absent: Headache, Dizziness Endocrine: Normal Hemo/Lymphatic: Normal Psychiatric: Normal Physical Exam Vital Signs Reviewed: Yes Vital Signs Temp Pulse Resp BP Pulse Ox 10/06/18 20:13 98.3 F 89 19 114/66 98 Temperature: Afebrile Blood Pressure: Normal Pulse: Regular Respiratory Rate: Normal Appearance: Positive for: Well-Appearing, Non-Toxic, Comfortable Pain Distress: None Mental Status: Positive for: Alert and Oriented X 3 - Systems Exam Head: Present: Atraumatic, Normocephalic Pupils: Present: PERRL Extroacular Muscles: Present: EOMI Conjunctiva: Present: Normal Mouth: Present: Moist Mucous Membranes Neck: Present: Normal Range of Motion Respiratory/Chest: Present: Clear to Auscultation, Good Air Exchange. No: Respiratory Distress, Accessory Muscle Use Cardiovascular: Present: Regular Rate and Rhythm, Normal S1, S2. No: Murmurs Abdomen: No: Tenderness, Distention, Peritoneal Signs Back: Present: Normal Inspection Upper Extremity: Present: Normal Inspection. No: Cyanosis, Edema Lower Extremity: Present: Normal Inspection. No: Edema Neurological: Present: GCS=15, CN II-XII Intact, Speech Normal Skin: Present: Warm, Dry, Rashes (Erythematous papular vesicular rash in a dermatomal pattern to the right anterolateral posterio thoracic region), Normal Color Psychiatric: Present: Alert, Oriented x 3, Normal Insight, Normal Concentration Medical Decision Making ED Course and Treatment: 10/06/18 20:20 Impression: 67 year old female complaining of a rash to right chest and right breast. Plan: -- Valtrex -- Reassess and disposition Progress Notes: - Scribe Statement The provider has reviewed the documentation as recorded by the Dominic Carrasco Provider Scribe Attestation: All medical record entries made by the Scribsawyer were at my direction and personally dictated by me. I have reviewed the chart and agree that the record accurately reflects my personal performance of the history, physical exam, medical decision making, and the department course for this patient. I have also personally directed, reviewed, and agree with the discharge instructions and disposition. Disposition/Present on Arrival - Present on Arrival Any Indicators Present on Arrival: No History of DVT/PE: No History of Uncontrolled Diabetes: No Urinary Catheter: No History of Decub. Ulcer: No History Surgical Site Infection Following: None - Disposition Have Diagnosis and Disposition been Completed?: Yes Diagnosis: Shingles rash Disposition: HOME/ ROUTINE Disposition Time: 21:10 Patient Plan: Discharge Condition: GOOD Discharge Instructions (ExitCare): Shingles (ED) Additional Instructions: take meds as prescribed/follow up with your doctor Prescriptions: valACYclovir [Valtrex] 1 gm PO TID #21 tab Capsaicin [Zostrix Hp] 56.6 gm TP TID PRN #1 tube PRN Reason: Pain, Moderate (4-7) Forms: [facility] ([place])
== END 2018-10-06 21:34 | disposition home or self-care (01) ==
LOC: ED 19:51
DX: B02.9 Zoster without complications (principal); I48.91 Unspecified atrial fibrillation

== ENCOUNTER 2019-02-21 19:26 | Emergency (ER) | payer OTHER ==
[2019-02-21 19:27] VITALS: BMI 24.9
[2019-02-21 19:41] VITALS: BP 124/74; PULSE 92; RESP 18; TEMP 97.8; O2SAT 96
--- NOTE | 2019-02-22 11:45 | CARD ---
APPROVED REPORT Date of service: 02/21/2019 EKG Measurement Heart [id number] <Conclusion> Atrial flutter with variable AV block with premature ventricular complexes Nonspecific ST-T changes Abnormal ECG
== END 2019-02-21 22:12 | disposition left against medical advice (07) ==
LOC: ED 19:26
DX: Z02.89 Encounter for other administrative examinations (principal); R07.9 Chest pain, unspecified